=== PATIENT | female | born 1965 | race Caucasian/White ===

== ENCOUNTER 2019-05-01 07:15 | Day surgery (SDC) | payer OTHER ==
[~2019-05-01 07:15] MED LIST: DEXTROSE 5%-0.9% NACL 1,000 ML IV
[2019-05-01] MEDS ORDERED: LIDOCAINE 100 MG SYRINGE (09:26)
[2019-05-01] MEDS ORDERED: PROPOFOL 20 ML (09:26)
[2019-05-01] MEDS ORDERED: ROCURONIUM 50 MG INJ (09:26)
[2019-05-01] MEDS ORDERED: SUCCINYLCHOLINE CHLORIDE 100 MG/5 ML SYG IV (09:26)
[2019-05-01] MEDS ORDERED: CEFAZOLIN 1 GM INJ (09:26)
[2019-05-01] MEDS ORDERED: FENTAnyl 50 MCG/ML VIAL (09:26)
[2019-05-01] MEDS ORDERED: HYDROmorphONE 1 MG/5 ML IV SYRINGE IV ×3 (09:30)
[2019-05-01] MEDS ORDERED: FENTAnyl 50 MCG/ML VIAL IV ×2 (09:30)
[2019-05-01] MEDS ORDERED: ONDANSETRON 4 MG INJ IV (09:30)
[2019-05-01] MEDS ORDERED: ALBUTEROL 0.083% (NEB) 2.5 MG/3 ML AMP HHN (09:30)
[2019-05-01] MEDS ORDERED: DIPHENHYDRAMINE 50 MG INJ IV (09:30)
[2019-05-01] MEDS ORDERED: METOCLOPRAMIDE 10 MG INJ IV (09:30)
[2019-05-01] MEDS ORDERED: MEPERIDINE 25 MG INJ IV (09:30)
[2019-05-01] MEDS ORDERED: SUGAMMADEX SODIUM 200 MG/2 ML VIAL IV (10:03)
== END 2019-05-01 10:43 | disposition home or self-care (01) ==
LOC: SDS 07:15
DX: N85.00 Endometrial hyperplasia, unspecified (principal); Z78.0 Asymptomatic menopausal state; D25.9 Leiomyoma of uterus, unspecified; I10 Essential (primary) hypertension; E66.9 Obesity, unspecified
CPT/HCPCS: 58558; 88305